=== PATIENT | female | born 1995 | race Caucasian/White ===

== ENCOUNTER 2020-04-22 05:10 | Emergency (ER) | payer MEDICAID ==
[~2020-04-22] VITALS: Ht 172.7 cm; Wt 72.6 kg
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
[2020-04-22] MEDS ORDERED: Morphine Sulfate 4mg/ml Inj (IV USE ONLY) IVP ONE (05:45)
[2020-04-22 05:51] VITALS: BP 129/82
[2020-04-22 05:56] LABS: BASOPHILS % (AUTO) 1.6 % (0.0-2.0); EOSINOPHILS % (AUTO) 3.7 % (0.0-3.0); HEMATOCRIT 36.5 % (37.0-47.0); HEMOGLOBIN 11.4 G/DL (12.0-16.0); LYMPHOCYTES % (AUTO) 19.6 % (20.0-45.0); MEAN CORPUSCULAR VOLUME 92 FL (80-99); MONOCYTES % (AUTO) 7.5 % (1.0-10.0); NEUTROPHILS % (AUTO) 67.5 % (45.0-75.0); PLATELET COUNT 209 K/UL (150-450); RED BLOOD COUNT 3.95 M/UL (4.20-5.40); RED CELL DISTRIBUTION WIDTH 13.9 % (11.6-14.8); WHITE BLOOD COUNT 10.6 K/UL (4.8-10.8)
[2020-04-22] MEDS ORDERED: Tetanus/Diptheria/Pertussis IM ONE (06:00)
[2020-04-22 06:07] LABS: ANION GAP 6 mmol/L (5-15); BLOOD UREA NITROGEN 12 mg/dL (7-18); CALCIUM 9.1 MG/DL (8.5-10.1); CARBON DIOXIDE 28 MMOL/L (21-32); CHLORIDE 107 MMOL/L (98-107); POTASSIUM 3.5 MMOL/L (3.5-5.1); SODIUM 141 MMOL/L (136-145)
[2020-04-22 06:08] LABS: INR 1.3 (0.9-1.1)
[2020-04-22 06:12] LABS: ALANINE AMINOTRANSFERASE 22 U/L (12-78); ALBUMIN 3.9 G/DL (3.4-5.0); ALBUMIN/GLOBULIN RATIO 1.1 (1.0-2.7); ALKALINE PHOSPHATASE 36 U/L (46-116); ASPARTATE AMINO TRANSFERASE 27 U/L (15-37); BILIRUBIN,TOTAL 0.3 MG/DL (0.2-1.0)
[2020-04-22] MEDS ORDERED: Hydromorphone 0.5mg/0.5ml inj ONE ×2 (06:15→10:44)
[2020-04-22] MEDS ORDERED: Hydromorphone 0.5mg/0.5ml inj IVP ONE ×3 (06:15→10:45)
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
[2020-04-22 06:25] VITALS: BP 125/78
--- NOTE | 2020-04-22 06:31 | Diagnostic Imaging Report ---
EXAM: CT Cervical Spine Without Intravenous Contrast CLINICAL HISTORY: PAIN TECHNIQUE: Axial computed tomography images of the cervical spine without intravenous contrast. CTDI is 20.2 mGy and DLP is 487.7 mGy-cm. One or more of the following dose reduction techniques were used: automated exposure control, adjustment of the mA and/or kV according to patient size, use of iterative reconstruction technique. COMPARISON: No relevant prior studies available. FINDINGS: Minimally displaced acute fracture of the anterior and inferior aspect of the C3 vertebral body. No retropulsion. No anterolisthesis or retrolisthesis. Reversal of normal cervical lordosis may be due to spasm. . No evidence of acute fractures in the remainder of the cervical spine. IMPRESSION: Minimally displaced "teardrop" type fracture of the anteroinferior C3 vertebral body, usually seen in the setting of hyperflexion injury. No retropulsion. Recommend correlation with MRI to assess for ligamentous or cord injury, especially in the setting of neurological symptoms. <MYCVCSECTION> Communications: 04/22/20 06:41 Call Doctor Regarding Above results, Informed Dr. Martin aware of results -
--- NOTE | 2020-04-22 06:40 | NUR ---
ED Nurse Note: Ct scan shows C3 fracture and we put c collar. we put right hip and hand splint
--- NOTE | 2020-04-22 06:51 | Diagnostic Imaging Report ---
EXAM: XR Right Femur, 2 Views CLINICAL HISTORY: PAIN TECHNIQUE: Frontal and lateral views of the right femur. COMPARISON: No relevant prior studies available. FINDINGS: Acute comminuted and laterally displaced fracture of the distal right femur with extension into the right knee joint. Small right knee hemarthrosis. The right hip joint is intact. IMPRESSION: Acute comminuted and laterally displaced fracture of the distal right femur with extension into the right knee joint. Small right knee hemarthrosis. See separate report for radiograph of the right knee for additional findings.
--- NOTE | 2020-04-22 06:53 | Diagnostic Imaging Report ---
EXAM: XR Right Knee, 3 Views CLINICAL HISTORY: PAIN TECHNIQUE: Three views of the right knee. COMPARISON: Correlated with radiograph of the right femur. FINDINGS: Acute comminuted fractures of the distal right femur and proximal right tibia with intra-articular extension. No costa dislocation. Small lipohemarthrosis. Soft tissue swelling. IMPRESSION: Acute comminuted fractures of the distal right femur and proximal right tibia with intra-articular extension. Small lipohemarthrosis.
--- NOTE | 2020-04-22 06:55 | Diagnostic Imaging Report ---
EXAM: XR Right Tibia and Fibula, 2 Views CLINICAL HISTORY: PAIN TECHNIQUE: Frontal and lateral views of the right tibia and fibula. COMPARISON: Correlated with radiograph of the right knee. FINDINGS: Acute comminuted fracture of the proximal right tibia with extension into the right tibial plateau and right knee joint. No radiographic evidence of right fibular fractures. Soft tissue swelling and emphysema. IMPRESSION: Acute comminuted fracture of the proximal right tibia with extension into the right tibial plateau and right knee joint. See separate report for radiograph of the right knee for additional findings.
--- NOTE | 2020-04-22 07:00 | Diagnostic Imaging Report ---
EXAM: XR Right Wrist Complete, 3 or More Views CLINICAL HISTORY: PAIN TECHNIQUE: Frontal, lateral and oblique views of the right wrist. COMPARISON: No relevant prior studies available. FINDINGS: Acute complex fracture of the distal right radius with mild dorsal angulation. Associated soft tissue swelling and hematoma. No costa dislocation. Remainder of visualized bony structures are unremarkable. Intercarpal spaces are preserved. IMPRESSION: Acute complex fracture of the distal right radius with mild dorsal angulation.
[2020-04-22 07:10] VITALS: BP 140/86
--- NOTE | 2020-04-22 07:10 | NUR ---
ED Nurse Note: Received report from Mae TANG. Pt seen sleeping in bed. Noted with a C-collar, right leg and hand splint. Breathing even and unlabored, on room air. Will cont to monitor.
--- NOTE | 2020-04-22 08:34 | NUR ---
EMERGENCY CONTACT: Josef (mother): [phone]
[2020-04-22 09:01] VITALS: BP 146/89
--- NOTE | 2020-04-22 10:27 | NUR ---
ED Nurse Note: Report given to Annika GAMEZ from [facility].
[2020-04-22 10:37] VITALS: BP 144/88
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
== END 2020-04-22 10:37 | disposition short-term general hospital (02) ==
LOC: EDBD 05:10 → EMR 05:28
DX: S72.401A Unspecified fracture of lower end of right femur, initial encounter for closed fracture (principal); S52.501A Unspecified fracture of the lower end of right radius, initial encounter for closed fracture; S82.141A Displaced bicondylar fracture of right tibia, initial encounter for closed fracture; S12.200A Unspecified displaced fracture of third cervical vertebra, initial encounter for closed fracture; S01.312A Laceration without foreign body of left ear, initial encounter; S80.211A Abrasion, right knee, initial encounter; V43.62XA Car passenger injured in collision with other type car in traffic accident, initial encounter; Y92.411 Interstate highway as the place of occurrence of the external cause; Z23 Encounter for immunization; Z20.828 Contact with and (suspected) exposure to other viral communicable diseases
CPT/HCPCS: 36415; 70450; 72125; 73110; 73552; 73562; 73590; 80053; 84702; 85025; 85610; 90471; 90715; 96374; 96375; 96376; G0480; J1170; J2270; J2405; U0002; Z7502; 99291